=== PATIENT | male | born 1970 | race Two or more races ===

== ENCOUNTER 2018-09-10 17:11 | Emergency (ER) | payer OTHER ==
[~2018-09-10] VITALS: Ht 167.6 cm; Wt 81.6 kg
[~2018-09-10 17:11] MED LIST: CIPRO500 MG PO; KETO10TA2 PO; TRAM1TAB98 PO; ZYRTEC10 M3 PO
[2018-09-10] MEDS ORDERED: FLONASE ALLERG9.9 ML NASAL (22:07)
[2018-09-10] MEDS ORDERED: MUCINEX DM ER1 EAC1 PO (22:07)
[2018-09-10] MEDS ORDERED: ZITHROMAX500 MG PO (22:07)
[2018-09-10] MEDS ORDERED: KETO10TA2 PO (22:07)
== END 2018-09-10 22:16 | disposition home or self-care (01) ==
LOC: ER 17:11
DX: J01.00 Acute maxillary sinusitis, unspecified (principal); J06.9 Acute upper respiratory infection, unspecified

== ENCOUNTER → 2019-08-18 | Emergency (ER) | payer OTHER ==
[~2019-08-18] VITALS: Ht 167.6 cm; Wt 85.3 kg
[~2019-08-18] MED LIST changes: +FLONASE ALLERG9.9 ML NASAL; +MUCINEX DM ER1 EAC1 PO; +PEPCID AC20 MG PO; +ZITHROMAX500 MG PO; +ZOFRAN8 MG SL
== END | disposition home or self-care (01) ==
LOC: ER 11:48
DX: K29.60 Other gastritis without bleeding (principal)

== ENCOUNTER 2020-08-07 19:41 | Emergency (ER) | payer OTHER ==
[~2020-08-07] VITALS: Ht 167.6 cm; Wt 83.9 kg
[2020-08-07] MEDS ORDERED: CIPRO500 MG PO (22:41)
[2020-08-07] MEDS ORDERED: KETO10TA2 PO (22:41)
[2020-08-07] MEDS ORDERED: TAMS0.4C PO (22:41)
== END 2020-08-07 22:56 | disposition home or self-care (01) ==
LOC: ER 19:41
DX: N20.1 Calculus of ureter (principal); R10.32 Left lower quadrant pain

== ENCOUNTER 2024-06-16 05:38 | Emergency (ER) | payer OTHER ==
[~2024-06-16] VITALS: Ht 160 cm; Wt 86.2 kg
[~2024-06-16 05:38] MED LIST changes: +TAMS0.4C PO
[2024-06-16] MEDS ORDERED: ORPHENADRINE CITRATE 30 MG/ML AMPUL IM STA (08:20)
[2024-06-16] MEDS ORDERED: KETOROLAC TROMETHAMINE 30 MG VIAL IM STA (08:20)
== END 2024-06-16 08:40 | disposition home or self-care (01) ==
LOC: ER 05:40
DX: M25.511 Pain in right shoulder (principal)

== ENCOUNTER 2024-06-18 03:48 | Emergency (ER) | payer OTHER ==
[~2024-06-18] VITALS: Ht 167.6 cm; Wt 86.2 kg
[2024-06-18] MEDS ORDERED: PRILOSEC OTC20 MG PO (03:57)
[2024-06-18] MEDS ORDERED: HYDROCODONE/CHLORPHEN P-STIREX 5 ML ML PO STA (05:07)
[2024-06-18 05:26] LABS: HEMATOCRIT 40.3 % (39.0-48.0); HEMOGLOBIN 13.9 g/dL (13-16.00); MEAN CELL VOLUME 95.5 fL (80.0-100.00); MEAN CORPUSCULAR HGB CONC 34.5 g/dl (32.0-36.0); PLATELET COUNT 249 K/uL (150-450); RED BLOOD COUNT 4.22 M/uL (4.00-6.00); RED CELL DISTRIBUTION WIDTH 13.1 % (11.5-14.5)
== END 2024-06-18 06:18 | disposition home or self-care (01) ==
LOC: ER 03:49
DX: R53.81 Other malaise (principal); J06.9 Acute upper respiratory infection, unspecified; Z20.822 Contact with and (suspected) exposure to COVID-19